=== PATIENT | male | born 1945 ===

== ENCOUNTER 2019-05-25 00:59 | Outpatient (CLI) | payer SELFPAY ==
[2019-05-25 08:46] LABS: HEMOGLOBIN A1C 5.7 % (4.5-6.2)
[2019-05-25 08:59] LABS: CHOL/HDL RATIO 3.03 (0.00-4.99)
== END 2019-05-25 23:59 | disposition home or self-care (01) ==
LOC: HW HEART 00:59
DX: Z13.6 Encounter for screening for cardiovascular disorders (principal)
CPT/HCPCS: 36415